=== PATIENT | female | born 1985 | race Caucasian/White ===

== ENCOUNTER 2024-02-02 21:48 | Emergency (ER) | payer OTHER ==
[~2024-02-02] VITALS: Ht 175.3 cm; Wt 89.1 kg
[2024-02-02 21:53] VITALS: TEMP 98.7
[2024-02-02] MEDS ORDERED: NS 1,000 ML IV ONE (22:15)
[2024-02-02 22:48] LABS: BASO % 0.4 % (0.0-2.0); EOS # 0.2 K/mm3 (0.0-0.7); EOS % 1.9 % (0.0-4.0); GRAN # 5.8 K/mm3 (1.4-6.5); GRAN % 57.5 % (42.2-75.2); HEMATOCRIT 39.3 % (37.0-47.0); HEMOGLOBIN 12.7 g/dl (12.5-16.0); LYMPH # 3.1 K/mm3 (1.2-3.4); LYMPH % 30.4 % (20.0-51.0); MEAN CELL VOLUME 89 fl (80.0-100.0); MEAN CORPUSCULAR HEMOGLOBIN 29 pg (27-31); MEAN CORPUSCULAR HGB CONC 32 g/dl (33.0-37.0); MEAN PLATELET VOLUME 10.1 fl (7.4-10.4); MONO % 9.5 % (1.7-9.3); PLATELET COUNT 337 K/mm3 (130-400); RED BLOOD COUNT 4.44 M/mm3 (4.10-5.30); REDCELL DISTRIBUTION WIDTH-CV 12.9 % (11.5-14.5)
[2024-02-02 22:50] LABS: PH 6.5 (5.0-8.5); URINE APPEARANCE CLEAR (CLEAR/HAZY); URINE BLOOD NEGATIVE (NEGATIVE); URINE COLOR YELLOW (YELLOW); URINE GLUCOSE NEGATIVE (NEGATIVE); URINE KETONE NEGATIVE (NEGATIVE); URINE NITRATE NEGATIVE (NEGATIVE); URINE PROTEIN(semi-quant) NEGATIVE (NEGATIVE); URINE UROBILINOGEN 0.2 E.U/dL (0.2-1.0)
[2024-02-02 23:06] LABS: ALBUMIN 3.8 g/dL (3.5-5.0); BILIRUBIN,TOTAL 0.2 mg/dL (0.2-1.2); C-REACTIVE PROTEIN 1.08 mg/dL (0.00-0.50); CALCIUM 9.8 mg/dL (8.4-10.2); CREATININE, serum 0.81 mg/dL (0.57-1.11); POTASSIUM 3.5 mEq/L (3.5-4.5); TOTAL PROTEIN 7.9 g/dl (6.2-8.1)
[2024-02-02] MEDS ORDERED: Iohexol 300 - 100 ML VIAL IV ONE (23:13)
[2024-02-02] MEDS ORDERED: NS 50 ML IV SCH (23:14)
[2024-02-02 23:25] LABS: COLLECTION METHOD CLEAN CATCH
[2024-02-03 00:16] VITALS: BP 110/76; PULSE 76
== END 2024-02-03 00:17 | disposition home or self-care (01) ==
LOC: COL.ER 21:48
PROVIDERS: Nurse Practitioner
DX: N83.201 Unspecified ovarian cyst, right side (principal)
CPT/HCPCS: J7030; Q9967